=== PATIENT | female | born 1985 | race Caucasian/White ===

== ENCOUNTER 2018-11-13 05:20 | Inpatient (IN) | payer BC, OTHER ==
[2018-11-13] MEDS ORDERED: AMPICILLIN - 2 GM in SODIUM CHLORIDE 100 ML IVPB ONE (06:00)
[2018-11-13] MEDS ORDERED: PROMETHAZINE HCL 25 MG/1 ML VIAL IVPB ONE (06:04)
[2018-11-13] MEDS ORDERED: BUTORPHANOL TARTRATE 1 MG/ML VIAL IVPB ONE (06:04)
[2018-11-13] MEDS ORDERED: AMPICILLIN SODIUM 2 GM VIAL ONE (06:11)
[2018-11-13 06:13] VITALS: BMI 28.2
[2018-11-13] MEDS: ELECTROLYTE-148 SOLN 1,000 ML IV SCH (06:34)
[2018-11-13 06:36] LABS: BASO % 0.1 % (0-2.0); EOS % 0.1 % (0-4.5); HEMATOCRIT 38.7 % (32.4-45.2); HEMOGLOBIN 13.1 GM/dL (10.7-15.3); LYMPH % 5.3 % (8-40); MCH 30.1 pg (25.7-33.7); MCHC 33.8 g/dl (32.0-36.0); MEAN CELL VOLUME 89.1 fl (80-96); MEAN PLT VOLUME 9.4 fl (7.5-11.1); MONO % 3.5 % (3.8-10.2); PLATELET COUNT 126 K/MM3 (134-434); RBC 4.34 M/mm3 (3.60-5.2); RDW 14.2 % (11.6-15.6); WHITE BLOOD COUNT 14.8 K/mm3 (4.0-10.0)
[2018-11-13] MEDS ORDERED: BUTORPHANOL TARTRATE 2 MG/ML VIAL ONE (06:53)
[2018-11-13] MEDS ORDERED: PROMETHAZINE HCL 25 MG/1 ML VIAL ONE (06:53)
[2018-11-13 06:58] LABS: ANION GAP 9 MMOL/L (8-16); BLOOD UREA NITROGEN 20 mg/dL (7-18); CALCIUM 8.7 mg/dL (8.5-10.1); CHLORIDE 108 mmol/L (98-107); CO2 23 mmol/L (21-32); CREATININE 0.6 mg/dL (0.55-1.3); GLUCOSE,RANDOM 161 mg/dL (74-106); POTASSIUM 3.6 mmol/L (3.5-5.1); SODIUM 140 mmol/L (136-145)
[2018-11-13 07:05] LABS: PROTHROMBIN TIME (PATIENT) 11.8 SEC (9.7-13.0)
[2018-11-13 07:08] LABS: ACTIVATED PTT 24.8 SECONDS (25.2-36.5)
[2018-11-13] MEDS ORDERED: TUBERCULIN PPD 5 TU/0.1ML SYRINGE (IN PATIENT USE ONLY) ID ONE (09:00)
--- NOTE | 2018-11-13 09:13 | HP ---
Past Medical History - Primary Care Physician PCP:: Beverly Sawyer - Admission Chief Complaint: painful contractions, possible LOF History of Present Illness: 33 y/o P0 female at 39.6 weeks here in early labor. Admitted overnight with painful contractions every 4-6 minutes. Some VB/Bloody show last evening as well. +FM. complicated by A1GDM. GBS positive. History Source: Patient, Medical Record Limitations to Obtaining History: No Limitations - Past Medical History Cardiovascular: No: AFIB, [place] Pulmonary: No: Asthma Gastrointestinal: No: GERD, Irritable Bowel Disease Hepatobiliary: No: Hepatitis C Renal/: No: UTI Reproductive: No: Ectopic , Fibroids, PID ...: 1 ...Para: 0 ...Term: 0 ...: 0 ...Spon : 0 ...Induced : 0 ...Multiple Gestation: 0 ...EDC by Sono: 11/14/18 Heme/Onc: No: Anemia Infectious Disease: No: HIV, MRSA, STD's Psych: No: Anxiety, Bipolar, Depression Endocrine: Yes: Other (gestational DM diet controlled) - Past Surgical History Past Surgical History: Yes: None Hx Myomectomy: No Hx Transabdominal Cerclage: No - Smoking History Smoking history: Never smoked Have you smoked in the past 12 months: No - Alcohol/Substance Use Hx Alcohol Use: No - Social History Usual Living Arrangement: Yes: With Spouse History of Recent Travel: No Home Medications - Allergies Allergies/Adverse Reactions: Allergies Allergy/AdvReac Type Severity Reaction Status Date / Time No Known Allergies Allergy Verified 11/13/18 05:55 - Home Medications Home Medications: Ambulatory Orders Vit No.129/Iron/Folic [ One Daily Tablet] 1 each PO DAILY 11/13 Review of Systems - Review of Systems Constitutional: reports: No Symptoms Eyes: reports: No Symptoms HENT: reports: No Symptoms Neck: reports: No Symptoms Cardiovascular: reports: No Symptoms Respiratory: reports: No Symptoms Gastrointestinal: reports: Abdominal Pain (with contractions) Genitourinary: reports: Vaginal Bleeding Musculoskeletal: reports: No Symptoms Integumentary: reports: No Symptoms Neurological: reports: No Symptoms Endocrine: reports: No Symptoms Hematology/Lymphatic: reports: No Symptoms Psychiatric: reports: No Symptoms Physical Exam - Maternity Vital Signs: Vital Signs Temperature 98.1 F 11/13/18 08:00 Pulse Rate 77 11/13/18 08:00 Respiratory Rate 20 11/13/18 08:00 Blood Pressure 126/72 11/13/18 08:00 O2 Sat by Pulse Oximetry (%) Constitutional: Yes: Well Nourished, No Distress, Calm Eyes: Yes: EOM Intact HENT: Yes: Normocephalic Neck: Yes: Supple Cardiovascular: Yes: Regular Rate and Rhythm Lungs: Clear to auscultation Breast(s): Yes: WNL - Abdominal Exam/OB Number of Fetuses: Single Presentation: Vertex Contractions: Yes Regularity: Regular Intensity: Mild/Mod Category: I Accelerations: Uniform Decelerations: None - Vaginal Exam/OB Vaginal Bleediing: No Dilatation (cm): 3 Effacement (%): 90 Presentation: Vertex/Position Station: 0 - Physical Exam Psychiatric: Yes: Alert, Oriented - Labs Lab Results: CBC, BMP 11/13/18 06:00 11/13/18 06:00 Hemorrhage Risk Assessment - Risk Factors Medium Risk Factors: Yes: None High Risk Factors: Yes: None Risk Score: 1 Risk Level: Medium Risk Problem List - Problems (1) Active labor at term Code(s): [id number] - (2) Gestational diabetes mellitus (GDM) in childbirth, diet controlled Code(s): O24.420 - GESTATIONAL DIABETES MELLITUS IN CHILDBIRTH, DIET CONTROLLED Assessment/Plan 33 y/o P0 female with SIUP at 39.6, GDMA1, in labor continue expectant management GBS prophylaxis epidural prn
[2018-11-13 10:20] LABS: ANISOCYTOSIS 0; HELMET CELLS 0; HOWELL-JOLLY BODIES 0; MACROCYTOSIS 0; OVALOCYTE 0; PLATELET ESTIMATE DECREASED; ROULEAU 0; SICKELED CELLS 0; TARGET CELLS 0; TEAR DROP CELLS 0; TOXIC GRANULATION 0
[2018-11-13] MEDS ORDERED: AMPICILLIN SODIUM 1 GM VIAL ONE ×4 (10:34→22:07)
[2018-11-13] MEDS: AMPICILLIN - 1 GM in SODIUM CHLORIDE 100 ML IVPB SCH ×4 (10:35→22:05)
[2018-11-13] MEDS ORDERED: FENTANYL/BUPIVACAINE/NS/PF - PCEA - 50 ML DISP.SYRIN EP ONE ×3 (11:19→20:39)
[2018-11-13] MEDS ORDERED: LIDO 2%/EPI 1:200000 PRESRVFRE (20 ML SDVIAL) ONE ×2 (11:39→17:01)
[2018-11-13] MEDS: FENTANYL/BUPIVACAINE/NS/PF - PCEA - 50 ML DISP.SYRIN EP SCH (12:00)
[2018-11-13] MEDS ORDERED: NALOXONE HCL 0.4 MG/ML VIAL IVPUSH PRN (12:10)
[2018-11-13] MEDS ORDERED: FENTANYL/BUPIVACAINE/NS/PF - PCEA - 50 ML DISP.SYRIN EP SCH (12:15)
--- NOTE | 2018-11-13 16:03 | PN ---
Progress Note, Labor Vaginal Exam #2 Labor Exam Date: 11/13/18 Labor Exam Time: 16:03 Dilatation: 3.5 Effacement (%): 90 Presentation: Vertex/Position Station: 0
--- NOTE | 2018-11-13 16:04 | LDN ---
Oxytocin Pre-Use Checklist Date and Time completed: 11/13/18 8511 Physician order on chart: Yes Current history and physical on chart: Yes Indication for induction is documented: Yes record on chart: Yes Pelvis is documented by physician to be clinically adequate: Yes Estimated weight within past week (clinical or sono): Less than 4250 grams in a diabetic woman Gestational age is documented: Yes Consent signed: Yes Physician with privileges: is aware of the induction, is readily available Status of the cervix is assessed and documented: Yes Presentation is assessed and documented: Yes
[2018-11-13] MEDS ORDERED: OXYTOCIN 30 UNITS in 0.9% NS 30 UNIT/500 ML INFUS.BAG IVPB SCH (16:15)
[2018-11-13] MEDS ORDERED: BUPIVACAINE HCL/PF 0.25% (2.5MG/ML) 10 ML VIAL ONE (16:17)
[2018-11-14] MEDS ORDERED: FENTANYL/BUPIVACAINE/NS/PF - PCEA - 50 ML DISP.SYRIN EP ONE (00:53)
[2018-11-14] MEDS ORDERED: AMPICILLIN SODIUM 1 GM VIAL ONE ×2 (01:58→06:02)
[2018-11-14] MEDS: AMPICILLIN - 1 GM in SODIUM CHLORIDE 100 ML IVPB SCH ×2 (02:02→06:05)
[2018-11-14] MEDS ORDERED: OXYTOCIN 20 UNITS in 0.9% NS 20 UNIT/1,000 ML INFUS.BAG IV ONE ×2 (02:28→08:21)
[2018-11-14] MEDS ORDERED: LIDOCAINE HCL 1% PRESERVATIVE FREE - 30ML VIAL ONE (02:28)
--- NOTE | 2018-11-14 03:50 | PN ---
Ante-Partal Exam - Subjective Vital Signs: Vital Signs Temperature 98.2 F 11/14/18 02:00 Pulse Rate 80 11/14/18 02:00 Respiratory Rate 18 11/14/18 02:00 Blood Pressure 121/72 11/14/18 02:00 O2 Sat by Pulse Oximetry (%) 96 11/14/18 02:00 Bleeding: Yes Bleeding Description: Mild (c/w bloody show) Headache: No Visual changes: No Right upper quadrant pain: No - Contractions Contractions: Yes Regularity: Regular Intensity: Mod/Strong - Exam during Labor Heart Rate: 150 Variability: Moderate Category: I Exam: Vaginal Dilatation (cm): 9.5 Effacement (%): 100 Presentation: Vertex Station: +1 - Assessment/Plan Assessment/Plan: to begin pushing
[2018-11-14] MEDS: ELECTROLYTE-148 SOLN 1,000 ML IV SCH (05:50)
--- NOTE | 2018-11-14 07:00 | PN ---
Ante-Partal Exam - Subjective Subjective: pt pushing for 30 minutes with little progress and still with antertior cervical lip on right side - reducible but still present Vital Signs: Vital Signs Temperature 98.5 F 11/14/18 06:00 Pulse Rate 101 H 11/14/18 06:30 Respiratory Rate 18 11/14/18 06:30 Blood Pressure 136/78 11/14/18 06:30 O2 Sat by Pulse Oximetry (%) 100 11/14/18 03:00 Bleeding: Yes Bleeding Description: Mild Visual changes: No Right upper quadrant pain: No - Contractions Contractions: Yes Regularity: Regular Intensity: Mod/Strong - Exam during Labor Heart Rate: 155 Variability: Moderate Category: I Monitor Accelerations: Present Monitor Decelerations: None Exam: Vaginal Dilatation (cm): 9.5 Effacement (%): 100 Amniotic Membrane Status: Ruptured Station: +1 - Assessment/Plan Assessment/Plan: Minimal progress, will take break and start pushing again in approx 30-45 minutes
--- NOTE | 2018-11-14 07:03 | PN ---
Ante-Partal Exam - Subjective Subjective: Pt was pushing since 0430 this a.m. with no progress. Vital Signs: Vital Signs Temperature 98.5 F 11/14/18 06:00 Pulse Rate 101 H 11/14/18 06:30 Respiratory Rate 18 11/14/18 06:30 Blood Pressure 136/78 11/14/18 06:30 O2 Sat by Pulse Oximetry (%) 100 11/14/18 03:00 Bleeding: Yes Headache: No Visual changes: No Right upper quadrant pain: No - Contractions Contractions: Yes Regularity: Regular Intensity: Mod/Strong - Exam during Labor Variability: Moderate Category: I Monitor Accelerations: Present Monitor Decelerations: None Exam: Vaginal Dilatation (cm): 10 Effacement (%): 100 Presentation: Vertex Station: +1 - Assessment/Plan Assessment/Plan: Discussed options with patient pt pushing for > 2 hours with no progress will plan for delivery informed consent signed anesthesia made aware ward catheter placed
[2018-11-14] MEDS ORDERED: LIDOCAINE HCL/PF 2% SDV 5ML VIAL ONE (07:22)
[2018-11-14] MEDS ORDERED: oxyCODONE HCL 5 MG TABLET PO PRN ×2 (07:28)
[2018-11-14] MEDS ORDERED: METHYLERGONOVINE MALEATE 0.2 MG/1 ML AMP IM PRN (07:28)
[2018-11-14] MEDS ORDERED: ceFAZolin SODIUM 1 GM VIAL ONE (07:40)
[2018-11-14] MEDS ORDERED: SODIUM CHLORIDE 0.9% P/F 10 ML VIAL IJ ONE (07:40)
[2018-11-14] MEDS ORDERED: KETOROLAC TROMETHAMINE 30 MG/1 ML VIAL ONE (07:41)
[2018-11-14] MEDS ORDERED: morphine SULFATE/Preservative Free 0.5 MG/ML (1cc Syringe) ONE ×4 (07:44→07:58)
[2018-11-14] MEDS ORDERED: OXYTOCIN 10 UNITS/ML VIAL ONE (07:46)
--- NOTE | 2018-11-14 08:57 | OP ---
Operative Note - Note: Operative Date: 11/14/18 Pre-Operative Diagnosis: failure to descend, IUP at 40 weeks, GDMA1 Operation: primary LTCS Post-Operative Diagnosis: Same as Pre-op Surgeon: Beverly Sawyer Visual Stylist: Bill Vazquez Anesthesiologist/[employer] FRUIT PACKER: Emanuel Celaya Anesthesia: Epidural Specimens Removed: placenta Estimated Blood Loss (mls): 600 Operative Report Dictated: Yes
--- NOTE | 2018-11-14 08:57 | PN ---
Delivery - Delivery Section: Primary, Low Flap Transverse Type of Anesthesia: Epidural Episiotomy/Laceration: None EBL (cc): 600 Delivery, Single - Stages of Labor Date of Delivery: 11/14/18 Date Placenta Delivered: 11/14/18 Placenta: Yes: Spontaneous - Condition of Infant Gender: Female Position: Left, OA - 1 Minute Total Score: 6 5 Minutes Total Score: 9 - Feeding Plan Initial Plan: Exclusive throughout hospitalization
[2018-11-14] MEDS: FERROUS SO4 325 MG TABLET (FP) PO SCH ×2 (10:39→18:48)
[2018-11-14] MEDS: IBUPROFEN 800 MG/8 ML IJ IVPB PRN ×2 (10:49→20:34)
--- NOTE | 2018-11-15 07:13 | PN ---
Post Progress Note - Subjective Subjective: Pt seen/evaluated. Doing well, no complaints . Pain controlled. Tolerating clear diet, good urine output overnight. Some perineal swelling but improved with ice. Type of Delivery: Primary C/S Vital Signs: Vital Signs Temperature 98.8 F 11/15/18 06:00 Pulse Rate 88 11/15/18 06:00 Respiratory Rate 18 11/15/18 06:00 Blood Pressure 108/63 11/15/18 06:00 O2 Sat by Pulse Oximetry (%) 98 11/14/18 21:00 Breast Exam: Yes: Soft Uterus: Yes: Fundus Firm Incision: Yes: Dressing dry and intact Abdomen/GI: Yes: Abdomen soft, Tolerating PO Lochia: Yes: Rubra Lochia, amount: Small Extremities: Yes: Calves non-tender, Edema (perineal ) Perineum: Yes: Intact - Labs Labs: CBC WBC 14.8 K/mm3 (4.0-10.0) H 11/13/18 06:00 RBC 4.34 M/mm3 (3.60-5.2) 11/13/18 06:00 Hgb 13.1 GM/dL (10.7-15.3) 11/13/18 06:00 Hct 38.7 % (32.4-45.2) 11/13/18 06:00 MCV 89.1 fl (80-96) 11/13/18 06:00 MCH 30.1 pg (25.7-33.7) 11/13/18 06:00 MCHC 33.8 g/dl (32.0-36.0) 11/13/18 06:00 RDW 14.2 % (11.6-15.6) 11/13/18 06:00 Plt Count 126 K/MM3 (134-434) L 11/13/18 06:00 MPV 9.4 fl (7.5-11.1) 11/13/18 06:00 Absolute Neuts (auto) 13.5 K/mm3 (1.5-8.0) H 11/13/18 06:00 Neutrophils % 91.0 % (42.8-82.8) H 11/13/18 06:00 Neutrophils % (Manual) 92.1 % (42.8-82.8) H 11/13/18 06:00 Band Neutrophils % 1.0 % 11/13/18 06:00 Lymphocytes % 5.3 % (8-40) L 11/13/18 06:00 Lymphocytes % (Manual) 3.9 % (8-40) L 11/13/18 06:00 Monocytes % 3.5 % (3.8-10.2) L 11/13/18 06:00 Monocytes % (Manual) 1 % (3.8-10.2) L 11/13/18 06:00 Eosinophils % 0.1 % (0-4.5) 11/13/18 06:00 Eosinophils % (Manual) 1.0 % (0-4.5) 11/13/18 06:00 Basophils % 0.1 % (0-2.0) 11/13/18 06:00 Basophils % (Manual) 0.0 % (0-2.0) 11/13/18 06:00 Myelocytes % (Man) 0 % (0-2) 11/13/18 06:00 Promyelocytes % (Man) 0 % (0-2) 11/13/18 06:00 Blast Cells % (Manual) 0 % (0-0) 11/13/18 06:00 Nucleated RBC % 0 % (0-0) 11/13/18 06:00 Metamyelocytes 0 % (0-2) 11/13/18 06:00 Hypochromia 0 11/13/18 06:00 Toxic Granulation 0 11/13/18 06:00 Dohle Bodies 0 11/13/18 06:00 Platelet Estimate Decreased 11/13/18 06:00 Polychromasia 0 11/13/18 06:00 Poikilocytosis 0 11/13/18 06:00 Basophilic Stippling 0 11/13/18 06:00 Anisocytosis 0 11/13/18 06:00 Microcytosis 0 11/13/18 06:00 Macrocytosis 0 11/13/18 06:00 Spherocytes 0 11/13/18 06:00 Sickle Cells 0 11/13/18 06:00 Target Cells 0 11/13/18 06:00 Tear Drop Cells 0 11/13/18 06:00 Ovalocytes 0 11/13/18 06:00 Stomatocytes 0 11/13/18 06:00 Helmet Cells 0 11/13/18 06:00 Kerr-[place] Bodies 0 11/13/18 06:00 [place] Rings 0 11/13/18 06:00 Jorge Luis Cells 0 11/13/18 06:00 Acanthocytes (Spur) 0 11/13/18 06:00 Rouleaux 0 11/13/18 06:00 Fragmented RBCs 0 11/13/18 06:00 Schistocytes 0 11/13/18 06:00 Problem List - Problems (1) Active labor at term Code(s): EFB3710 - (2) Gestational diabetes mellitus (GDM) in childbirth, diet controlled Code(s): O24.420 - GESTATIONAL DIABETES MELLITUS IN CHILDBIRTH, DIET CONTROLLED (3) Failure of descent in labor, delivered, current hospitalization Code(s): O62.2 - OTHER UTERINE INERTIA (4) delivery delivered Code(s): O82 - ENCOUNTER FOR DELIVERY WITHOUT INDICATION Assessment/Plan 33 y/o POD#1 s/p delivery for failure to descend. AFVSS advance diet await a.m. labs routine care
[2018-11-15] MEDS: SIMETHICONE 80 MG TAB.CHEW (FP) PO PRN ×3 (07:23→20:04)
[2018-11-15] MEDS: ACETAMINOPHEN 325 MG TABLET (FP) PO PRN ×3 (07:23→20:03)
[2018-11-15] MEDS: IBUPROFEN 600 MG TABLET (FP) PO PRN ×3 (07:23→20:04)
[2018-11-15] MEDS ORDERED: BISACODYL 10 MG SUPP.RECT RC PRN (07:28)
[2018-11-15 08:00] LABS: BASO % 0.2 % (0-2.0); EOS % 0.7 % (0-4.5); HEMATOCRIT 28.9 % (32.4-45.2); HEMOGLOBIN 9.6 GM/dL (10.7-15.3); LYMPH % 7.6 % (8-40); MCHC 33.2 g/dl (32.0-36.0); MEAN CELL VOLUME 90.6 fl (80-96); MEAN PLT VOLUME 9.5 fl (7.5-11.1); MONO % 7.1 % (3.8-10.2); NEUT % 84.4 % (42.8-82.8); PLATELET COUNT 99 K/MM3 (134-434); RDW 14.7 % (11.6-15.6); WHITE BLOOD COUNT 12.4 K/mm3 (4.0-10.0)
--- NOTE | 2018-11-15 08:23 | OP ---
DATE OF OPERATION: 11/14/2018 PREOPERATIVE DIAGNOSIS: Failure to descend. POSTOPERATIVE DIAGNOSIS: Failure to descend. PROCEDURE: Primary low transverse section. SURGEON: Beverly Sawyer MD ANESTHESIA: Epidural. ANESTHESIOLOGIST: Chetan Bowling DO PASTA PRESS OPERATOR: Bill Vazquez PA-C ESTIMATED BLOOD LOSS: 600 mL. COMPLICATIONS: None. COUNTS: Sponge, needle, and instrument counts correct. FINDINGS: Normal bilateral tubes and ovaries, live female . SPECIMENS REMOVED: Placenta. DISPOSITION: Stable to the PACU. 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 She was allowed to progress throughout her labor, and at approximately 3 a.m. on November 14, 2018, was found to be fully dilated. The patient pushed for several hours without descent or delivery. At approximately 7 a.m. on November 14, 2018, plans were made for a delivery. Patient signed consent for the procedure. She was taken back to the operating room, where her epidural, which was given prior throughout her labor process, was bolused to provide adequate anesthesia. She was placed in the dorsal supine position. A Grimm catheter was already present. She was prepped and draped in the usual sterile fashion. Then, a hard time-out was performed. A Pfannenstiel skin incision was created in the skin with a scalpel and carried through the underlying layer of rectus fascia sharply. The rectus fascia was incised on either side of the midline sharply. The fascial incision was carried in the superior and lateral direction sharply. The fascia was tented upwards and dissected off the underlying layer of rectus muscle with the Bovie. The muscles were identified in the midline were laterally. The peritoneum was entered very carefully to allow for adequate room for delivery. The bladder blade was inserted. The lower uterine segment incision was created with a scalpel and carried in a superior lateral direction bluntly. The infant was then delivered from the right occiput anterior position without difficulty. Bilateral shoulders and the remainder of the delivered with ease. The cord was clamped twice, then cut, and the was taken over to the neonatology staff. Her scores of 6 9 were assigned. The placenta was delivered with the 3-vessel cord and intact. The placenta was manually extracted from the uterus. The uterus was exteriorized from the abdomen, inspected cleared of all amniotic membranes and debris with a dry lap sponge. Bilateral tubes and ovaries were noted to be normal. The hysterotomy was reapproximated in a double-layer closure first using 1 Vicryl suture in a running locked fashion, second using 0 Biosyn in a running locked fashion. Excellent hemostasis was achieved. The posterior cul-de-sac was suctioned of any blood and fluid. The uterus was placed back in the abdomen. Bilateral gutters were inspected and cleared of all blood clot and debris. The hysterotomy was again examined and noted to be hemostatic. The peritoneum was reapproximated using 2-0 chromic in a running fashion. The musculature was reapproximated in single interrupted suture using 3-0 Biosyn. The fascia was reapproximated using 1 Vicryl in a running locked fashion. The subcutaneous tissue was irrigated and reapproximated using No. 1 Vicryl in a running fashion, and the skin was reapproximated in a subcuticular fashion using 1 Vicryl, and Steri-Strips were then applied. Patient tolerated the procedure well and was recovering in stable condition in the PACU after the procedure. BEVERLY SAWYER DO /[id number]
[2018-11-15] MEDS: PRENATAL VITAMINS W/ FOLIC ACID TABLET (FP) PO SCH (09:43)
[2018-11-15] MEDS: FERROUS SO4 325 MG TABLET (FP) PO SCH ×2 (09:43→17:27)
--- NOTE | 2018-11-15 10:36 | PN ---
Progress Note (short form) - Note Progress Note: Anesthesia postop note, POD#1. S/P under epidural. Pat seen and examined. VSS. Moving all extremities. Pain well controlled. No apparent post anesthesia complications. Continued care as per primary team.
[2018-11-15] MEDS: OXYTOCIN 20 UNITS in 0.9% NS 20 UNIT/1,000 ML INFUS.BAG IV SCH (19:54)
[2018-11-15] MEDS: FENTANYL/BUPIVACAINE/NS/PF - PCEA - 50 ML DISP.SYRIN EP SCH (19:54)
[2018-11-16] MEDS: ACETAMINOPHEN 325 MG TABLET (FP) PO PRN ×4 (03:14→20:51)
[2018-11-16] MEDS: SIMETHICONE 80 MG TAB.CHEW (FP) PO PRN ×4 (03:14→20:51)
[2018-11-16] MEDS: IBUPROFEN 600 MG TABLET (FP) PO PRN ×4 (03:14→20:51)
--- NOTE | 2018-11-16 08:02 | PN ---
Post Progress Note - Subjective Subjective: 33 yo Para 1, status post primary , seen and evaluated. Doing well. Post Day: 2 Type of Delivery: Primary C/S Vital Signs: Vital Signs Temperature 98.5 F 11/15/18 22:00 Pulse Rate 109 H 11/15/18 22:00 Respiratory Rate 18 11/15/18 22:00 Blood Pressure 119/64 11/15/18 22:00 O2 Sat by Pulse Oximetry (%) 98 11/14/18 21:00 Breast Exam: Yes: Soft Uterus: Yes: Fundus Firm Incision: Yes: Sutures intact Abdomen/GI: Yes: Abdomen soft, Tolerating PO Lochia: Yes: Rubra Lochia, amount: Small Extremities: Yes: Calves non-tender Perineum: Yes: Intact Activity: Ambulating - Labs Labs: CBC WBC 12.4 K/mm3 (4.0-10.0) H 11/15/18 07:00 RBC 3.20 M/mm3 (3.60-5.2) L 11/15/18 07:00 Hgb 9.6 GM/dL (10.7-15.3) L 11/15/18 07:00 Hct 28.9 % (32.4-45.2) L D 11/15/18 07:00 MCV 90.6 fl (80-96) 11/15/18 07:00 MCH 30.0 pg (25.7-33.7) 11/15/18 07:00 MCHC 33.2 g/dl (32.0-36.0) 11/15/18 07:00 RDW 14.7 % (11.6-15.6) 11/15/18 07:00 Plt Count 99 K/MM3 (134-434) L D 11/15/18 07:00 MPV 9.5 fl (7.5-11.1) 11/15/18 07:00 Absolute Neuts (auto) 10.5 K/mm3 (1.5-8.0) H 11/15/18 07:00 Neutrophils % 84.4 % (42.8-82.8) H 11/15/18 07:00 Neutrophils % (Manual) 92.1 % (42.8-82.8) H 11/13/18 06:00 Band Neutrophils % 1.0 % 11/13/18 06:00 Lymphocytes % 7.6 % (8-40) L D 11/15/18 07:00 Lymphocytes % (Manual) 3.9 % (8-40) L 11/13/18 06:00 Monocytes % 7.1 % (3.8-10.2) D 11/15/18 07:00 Monocytes % (Manual) 1 % (3.8-10.2) L 11/13/18 06:00 Eosinophils % 0.7 % (0-4.5) D 11/15/18 07:00 Eosinophils % (Manual) 1.0 % (0-4.5) 11/13/18 06:00 Basophils % 0.2 % (0-2.0) 11/15/18 07:00 Basophils % (Manual) 0.0 % (0-2.0) 11/13/18 06:00 Myelocytes % (Man) 0 % (0-2) 11/13/18 06:00 Promyelocytes % (Man) 0 % (0-2) 11/13/18 06:00 Blast Cells % (Manual) 0 % (0-0) 11/13/18 06:00 Nucleated RBC % 0 % (0-0) 11/15/18 07:00 Metamyelocytes 0 % (0-2) 11/13/18 06:00 Hypochromia 0 11/13/18 06:00 Toxic Granulation 0 11/13/18 06:00 Dohle Bodies 0 11/13/18 06:00 Platelet Estimate Decreased 11/13/18 06:00 Polychromasia 0 11/13/18 06:00 Poikilocytosis 0 11/13/18 06:00 Basophilic Stippling 0 11/13/18 06:00 Anisocytosis 0 11/13/18 06:00 Microcytosis 0 11/13/18 06:00 Macrocytosis 0 11/13/18 06:00 Spherocytes 0 11/13/18 06:00 Sickle Cells 0 11/13/18 06:00 Target Cells 0 11/13/18 06:00 Tear Drop Cells 0 11/13/18 06:00 Ovalocytes 0 11/13/18 06:00 Stomatocytes 0 11/13/18 06:00 Helmet Cells 0 11/13/18 06:00 Kerr-Pringle Bodies 0 11/13/18 06:00 [place] Rings 0 11/13/18 06:00 [place] Cells 0 11/13/18 06:00 Acanthocytes (Spur) 0 11/13/18 06:00 Rouleaux 0 11/13/18 06:00 Fragmented RBCs 0 11/13/18 06:00 Schistocytes 0 11/13/18 06:00 Assessment/Plan Status post primary Stable Ambulation Analgesia as needed Continue routine post op care
[2018-11-16] MEDS: FERROUS SO4 325 MG TABLET (FP) PO SCH ×2 (08:46→17:54)
[2018-11-16] MEDS: PRENATAL VITAMINS W/ FOLIC ACID TABLET (FP) PO SCH ×2 (08:48→09:17)
--- NOTE | 2018-11-17 04:24 | PN ---
Post Progress Note - Subjective Subjective: 33 yo status post , seen and evaluated. Doing well. Post Day: 3 Type of Delivery: Primary C/S Vital Signs: Vital Signs Temperature 98.8 F 11/17/18 02:39 Pulse Rate 74 11/17/18 02:39 Respiratory Rate 20 11/17/18 02:39 Blood Pressure 121/61 11/17/18 02:39 O2 Sat by Pulse Oximetry (%) 99 11/17/18 02:39 Uterus: Yes: Fundus Firm Incision: Yes: Sutures intact Abdomen/GI: Yes: Abdomen soft, Tolerating PO Lochia: Yes: Rubra Lochia, amount: Small Extremities: Yes: Calves non-tender Activity: Ambulating - Labs Labs: CBC WBC 12.4 K/mm3 (4.0-10.0) H 11/15/18 07:00 RBC 3.20 M/mm3 (3.60-5.2) L 11/15/18 07:00 Hgb 9.6 GM/dL (10.7-15.3) L 11/15/18 07:00 Hct 28.9 % (32.4-45.2) L D 11/15/18 07:00 MCV 90.6 fl (80-96) 11/15/18 07:00 MCH 30.0 pg (25.7-33.7) 11/15/18 07:00 MCHC 33.2 g/dl (32.0-36.0) 11/15/18 07:00 RDW 14.7 % (11.6-15.6) 11/15/18 07:00 Plt Count 99 K/MM3 (134-434) L D 11/15/18 07:00 MPV 9.5 fl (7.5-11.1) 11/15/18 07:00 Absolute Neuts (auto) 10.5 K/mm3 (1.5-8.0) H 11/15/18 07:00 Neutrophils % 84.4 % (42.8-82.8) H 11/15/18 07:00 Neutrophils % (Manual) 92.1 % (42.8-82.8) H 11/13/18 06:00 Band Neutrophils % 1.0 % 11/13/18 06:00 Lymphocytes % 7.6 % (8-40) L D 11/15/18 07:00 Lymphocytes % (Manual) 3.9 % (8-40) L 11/13/18 06:00 Monocytes % 7.1 % (3.8-10.2) D 11/15/18 07:00 Monocytes % (Manual) 1 % (3.8-10.2) L 11/13/18 06:00 Eosinophils % 0.7 % (0-4.5) D 11/15/18 07:00 Eosinophils % (Manual) 1.0 % (0-4.5) 11/13/18 06:00 Basophils % 0.2 % (0-2.0) 11/15/18 07:00 Basophils % (Manual) 0.0 % (0-2.0) 11/13/18 06:00 Myelocytes % (Man) 0 % (0-2) 11/13/18 06:00 Promyelocytes % (Man) 0 % (0-2) 11/13/18 06:00 Blast Cells % (Manual) 0 % (0-0) 11/13/18 06:00 Nucleated RBC % 0 % (0-0) 11/15/18 07:00 Metamyelocytes 0 % (0-2) 11/13/18 06:00 Hypochromia 0 11/13/18 06:00 Toxic Granulation 0 11/13/18 06:00 Dohle Bodies 0 11/13/18 06:00 Platelet Estimate Decreased 11/13/18 06:00 Polychromasia 0 11/13/18 06:00 Poikilocytosis 0 11/13/18 06:00 Basophilic Stippling 0 11/13/18 06:00 Anisocytosis 0 11/13/18 06:00 Microcytosis 0 11/13/18 06:00 Macrocytosis 0 11/13/18 06:00 Spherocytes 0 11/13/18 06:00 Sickle Cells 0 11/13/18 06:00 Target Cells 0 11/13/18 06:00 Tear Drop Cells 0 11/13/18 06:00 Ovalocytes 0 11/13/18 06:00 Stomatocytes 0 11/13/18 06:00 Helmet Cells 0 11/13/18 06:00 [place] Bodies 0 11/13/18 06:00 [place] Rings 0 11/13/18 06:00 Jorge Luis Cells 0 11/13/18 06:00 Acanthocytes (Spur) 0 11/13/18 06:00 Rouleaux 0 11/13/18 06:00 Fragmented RBCs 0 11/13/18 06:00 Schistocytes 0 11/13/18 06:00 Assessment/Plan Status post primary Stable Ambulation Analgesia as needed Continue routine post op care
[2018-11-17] MEDS: IBUPROFEN 600 MG TABLET (FP) PO PRN (07:21)
[2018-11-17 07:23] LABS: BASO % 0.3 % (0-2.0); HEMOGLOBIN 9.6 GM/dL (10.7-15.3); LYMPH % 12.5 % (8-40); MCH 30.6 pg (25.7-33.7); MCHC 34.3 g/dl (32.0-36.0); MEAN CELL VOLUME 89.1 fl (80-96); MEAN PLT VOLUME 9.2 fl (7.5-11.1); MONO % 5.7 % (3.8-10.2); NEUT % 80.5 % (42.8-82.8); PLATELET COUNT 140 K/MM3 (134-434); RBC 3.15 M/mm3 (3.60-5.2); RDW 14.5 % (11.6-15.6); WHITE BLOOD COUNT 10.5 K/mm3 (4.0-10.0)
[2018-11-17] MEDS: SIMETHICONE 80 MG TAB.CHEW (FP) PO PRN (07:23)
[2018-11-17] MEDS: ACETAMINOPHEN 325 MG TABLET (FP) PO PRN (07:23)
--- NOTE | 2018-11-17 08:06 | DS ---
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 Vital Signs: Vital Signs Temperature 98.8 F 11/17/18 02:39 Pulse Rate 74 11/17/18 02:39 Respiratory Rate 20 11/17/18 02:39 Blood Pressure 121/61 11/17/18 02:39 O2 Sat by Pulse Oximetry (%) 99 11/17/18 02:39 Constitutional: Yes: Well Nourished Eyes: Yes: Conjunctiva Clear HENT: Yes: Atraumatic Neck: Yes: Supple Cardiovascular: Yes: Regular Rate and Rhythm Respiratory: Yes: Regular Gastrointestinal: Yes: Normal Bowel Sounds External Genitalia: Yes: Normal Vaginal Exam: Yes: Normal Cervix: Yes: Normal Uterus: Yes: Firm Wound/Incision: Yes: Well Approximated, Sutures Intact Neurological: Yes: Alert, Oriented ...Motor Strength: WNL Psychiatric: Yes: Alert, Oriented Labs: CBC, BMP 11/17/18 06:45 11/13/18 06:00 Delivery - Delivery Section: Primary, Low Flap Transverse Type of Anesthesia: Epidural Episiotomy/Laceration: None EBL (cc): 600 Delivery, Single - Stages of Labor Date 1st Stage Initiatied: 11/13/18 Time 1st Stage Initiated: 06:00 Date 2nd Stage Initiated: 11/14/18 Time 2nd Stage Initiated: 05:00 Date of Delivery: 11/14/18 Time of Delivery: 07:38 Time Placenta Delivered: 07:39 Placenta: Yes: Spontaneous - Condition of Mitten Stitcher/Head Of Digital Present: No Infant Gender: Female Weight: 7 lb 5 oz Position: Left, OA Total Hours ROM (Hrs/Mins): 28H40M - 1 Minute Total Score: 6 5 Minutes Total Score: 9 - [place] Feeding Plan Initial Plan: Exclusive throughout hospitalization Discharge Summary Reason For Visit: ADMIT LABOR Current Active Problems Active labor at term (Acute) delivery delivered (Acute) Failure of descent in labor, delivered, current hospitalization (Acute) Gestational diabetes mellitus (GDM) in childbirth, diet controlled (Acute) Procedures: Principal: Primary Low Transverse Hospital Course: Routine post op care Condition: Good - Instructions Diet, Activity, Other Instructions: Regular diet No driving, no lifting x 4 weeks F/U with MD in 2 weeks Disposition: HOME - Home Medications Comprehensive Discharge Medication List: Ambulatory Orders Vit No.129/Iron/Folic [ One Daily Tablet] 1 each PO DAILY 11/13
[2018-11-17] MEDS: PRENATAL VITAMINS W/ FOLIC ACID TABLET (FP) PO SCH (10:44)
[2018-11-17] MEDS: FERROUS SO4 325 MG TABLET (FP) PO SCH (10:44)
--- NOTE | 2018-11-17 11:14 | PATH ---
Surgical Pathology Report Patient Name: [facility]. Rec. #: [id number] /Age/Gender: 1985 (Age: 33) / F Account: [id number] Location: [facility] OBS/FISH AND WILDLIFE WARDEN Taken: 11/14/2018 Received: 11/14/2018 Reported: 11/17/2018 Physicians: Beverly Sawyer M.D. Specimen(s) Received PLACENTA Clinical History , gestational diabetic Final Diagnosis PLACENTA, DELIVERY: FOCALLY DISRUPTED THIRD TRIMESTER PLACENTA WITH ACUTE CHORIOAMNIONITIS, AND THREE VESSEL UMBILICAL CORD. Electronically Signed Jong Richards M.D. Gross Description The specimen is received fresh labeled placenta and is a 455 gram, 20.0 x 15.0 x 2.0 cm. placenta with attached membranes and umbilical cord. The attached membranes are priest, translucent with focal opacities and insert marginally. The umbilical cord measures 40 cm. in length and averages 0.9 cm. in diameter. The cord inserts eccentrically, 3.5 cm. to the nearest margin. No true knots or strictures are identified. Cut surface of the umbilical cord reveals 3 vessels. The surface is romero-blue with minimal fibrin deposition and appropriate caliber vessels. The maternal surface is red-brown with focal defects. Sectioning reveals red-brown, spongy parenchyma. No lesions are identified. Floor Tech sections are submitted in three cassettes as follows: 1- membrane rolls and umbilical cord; 2-3- full thickness sections of placenta. /11/14/2018 saudi/11/14/2018
[2018-11-17 11:20] VITALS: BP 102/68; PULSE 76; TEMP 97.7
== END 2018-11-17 12:10 | disposition home or self-care (01) | DRG 788 ==
LOC: JLDR 05:20 → J3W 11-14 10:00
PROVIDERS: ADMIT Obstetrics & Gynecology; ATTEND Obstetrics & Gynecology
PROC: 10D00Z1 Extraction of Products of Conception, Low, Open Approach (ICD-10-PCS; principal; 2018-11-14)
DX: O24.420 Gestational diabetes mellitus in childbirth, diet controlled (principal); O62.0 Primary inadequate contractions; O99.824 Streptococcus B carrier state complicating childbirth; Z3A.39 39 weeks gestation of pregnancy; Z37.0 Single live birth
CPT/HCPCS: 36415; 80048; 82962; 85025; 85610; 85730; 86593; 86850; 86900; 86901; 88307-TC